=== PATIENT | female | born 1965 | race Two or more races ===

== ENCOUNTER 2025-04-22 16:14 | Emergency (ER) | payer OTHER ==
[~2025-04-22] VITALS: Ht 162.6 cm; Wt 93.3 kg
--- NOTE | 2025-04-22 17:35 | ED.PDOC ---
History of Present Illness HPI Comments 59 y/o obese F presents with c/c of bilateral, mid back pain. Patient reports on pain starting after lifting an "8ft Foreign tree" and hearing a "crack" from her back on 04/13/25. She has been evaluated and seen multiple times for pain at a [facility] compensation clinic and was referred to the ED for CT/MRI after outpatient X-ray showed indeterminate age compression fracture in T11. Patient denies any numbness, tingling, or further acute symptoms. Past medical history: HTN Past surgical history: 3 C-sections NGUYEN: BACKPAIN, WORK INJURY, SEND FOR POSS T11 FRACTURE. WEARING ABD BELT. NO CAUDA EQUINA. HPI: Poor Historian. REVIEW OF SYSTEMS: CONSTITUTIONAL: Denies acute: fever, diaphoresis, chills, generalized weakness. HEAD: Denies acute: headache, photophobia Eyes: Denies acute: Double vision, vision loss, eye pain, eye discharge. EARS: Denies acute: tinnitus, hearing loss, ear discharge, ear pain, THROAT: Denies acute: sore throat, swelling, difficulty swallowing , pain with swallowing, change in voice. NECK: Denies acute: neck pain, neck swelling, stiff neck. HEART: Denies acute : chest pain, palpitations, LUNGS: Denies acute: SOB, wheezing, cough, hemoptysis ABDOMEN: Denies acute: abdominal pain, Nausea, Vomiting, diarrhea, melena , hematemesis, hematochezia SKIN: Denies acute: rash, redness, lesions, itchiness. EXTREMITIES: Denies acute: calf pain, numbness, tingling, weakness, denies pain in extremity. Neuro: Denies acute: focal neurological deficit, motor or sensory focal neurological deficit, tremors, seizure like activity, confusion, dizziness, change in mental status, loss of bowel or bladder function, cauda equina like symptoms. : Denies acute: dysuria, hematuria, flank pain, increase in urinary frequency. PSYCH: Denies acute: hallucination, suicidal ideation, homicidal ideation. FEMALE: Denies acute: abnormal vaginal bleeding, foul odor, unusual discharge. PHYSICAL EXAM: General: ----mild----acute distress, awake and alert. Head: normocephalic, atraumatic. No raccoon's eyes, no wooten sign. Neck: supple, trachea is midline, no swelling. Throat: Normal phonation. Eyes:, no erythema, no purulent discharge, no proptosis, no icterus. Heart: regular rate, regular rhythm, no significant murmur appreciated. Lungs: no apparent respiratory distress, Able to speak in full sentences. No wheezing, no rhonchi, no crackles. No stridors Clear to auscultation bilaterally. Abdomen: non tender to palpation, non distended, soft, no guarding, no rebound, + bowel sounds. obese Neuro: Awake, Alert, oriented to name, self, situation, follows commands GCS=15. Speech is normal. Skin: no petechia, no purpura, no cyanosis, non-pale, not jaundice. Lower extremities: --no - Pitting edema no deformity, no focal swelling, no calf TTP. Makes eye contact. moves all four extremities. Face: no apparent facial droop. Ambulating in the ED independently. ED COURSE: DISCLAIMER: This medical document was created using an electronic medical record system with voice recognition software and computerized dictation system. Although this document has been carefully reviewed, there might still be some phonetic and typographical errors. Occasional wrong-word or "sound-alike" substitutions may have occurred due to the inherent limitations of voice recognition software. These areas are purely typographical due to imperfections of the software programs and do not reflect any compromise in the patient's medical care. Please read the chart carefully and recognize, using context, where these substitutions have occurred. Chief Complaint: Back Pain Time Seen by MD: 17:20 Reviewed Notes: Nurses Notes, Allergies Allergies: Coded Allergies: NO KNOWN ALLERGIES (Unverified , 04/22/25) Information Source: Patient Mode of Arrival: Ambulatory Was a procedure done? Was a procedure done?: No X-Ray, Labs, Meds, VS Vital Signs Date Time Temp Pulse Resp B/P (MAP) Pulse Ox O2 Delivery O2 Flow Rate FiO2 04/22/25 16:25 98.2 83 18 129/98 95 98.2 Time of 1ST Reevaluation: 18:00 Reevaluation 1ST: Unchanged Patient Education/Counseling: Diagnosis, Treatment Family Education/Counseling: No Family Present SEPSIS Sepsis Screen Date sepsis recognized/suspect: Apr 22, 2025 Time Sepsis recognized/suspect: 1631 Recent Procedure: No On Antibiotic Therapy: No Respiratory Rate >20: No Heart Rate >90: No Temp<36 C (96.8 F) or >38.3 C: No SBP <90 or MAP <65 mmHG: No New Acute Mental Status Change: No Is the patient on CPAP, BIPAP,: No Physician Orders Ls Spine Wo Contrast (04/22/25 17:21) Thoracic Spine Wo Contras (04/22/25 17:21) Vital Signs Date Time Temp Pulse Resp B/P (MAP) Pulse Ox O2 Delivery O2 Flow Rate FiO2 04/22/25 16:25 98.2 83 18 129/98 95 98.2 Departure 1 Departure Time of Disposition: 18:09 Impression: Primary Impression: Compression fracture of T11 vertebra Additional Impression: Back injury Disposition: HOME / SELF CARE / HOMELESS Condition: Stable Additional Instructions: Additional instructions: Please read all instructions provided in this packet carefully. You MUST follow-up with your primary care/family doctor in 1 to 2 days. If you are unable to see your primary care/family doctor, please return to our emergency room for re-assessment and re-evaluation in 1 to 2 days. Return to the emergency room here in our facility or to the nearest ER [facility] if your symptoms change or worsen. CONSULTATIONS: you MUST Follow-up for consultation as soon as possible with: -orthopedic spine doctor or neurosurgery spine doctor in 1-2 days. Please call for appointment. You MUST call the consultants office yourself to make an appointment. You may need to arrange that through your insurance and/or your primary/family doctor. If you are unable to see the information services consultant in 1 to 2 days, you must return to our emergency room (or any other ER of your choice) for re-assessment and re- evaluation. Adequate fluid hydration. Although you have been discharged from the Emergency Department, this does not mean that you have a "clean bill of health". No definitive diagnosis for your symptoms has been made today. It is possible that you are in the process of developing a serious illness. This is why you must return to the ED without fail if any new or worsening symptoms develop. No lifting. The fall precautions. Below is a copy of your radiological report for follow up: [facility] [id number] [facility] [address] Ph: [phone] DIAGNOSTIC IMAGING Diagnostic Imaging Report : [id number] Signed PATIENT: DUSTIN NGUYEN ACCT: [id number] UNIT: [id number] : 1965 LOC: ER ROOM / BED: / AGE / SEX: 59 / F ADM STATUS: REG ER SERVICE 1721 ORDERING PHYSICIAN: REZA WATTERS DO PROCEDURE(s): LS2CT - LS SPINE WO CONTRAST REASON: work injury ORDER NUMBER(s): [id number], ACCESSION NUMBER(s): [id number] EXAM: CT LS SPINE WO CONTRAST, CT THORACIC SPINE WO CONTRAS INDICATION: work injury TECHNIQUE: Axial images of the thoracic and lumbar spine have been obtained along with coronal and sagittal reformatted images. CT scans at this facility use dose modulation, iterative reconstruction, and/or weight based dosing when appropriate to reduce radiation dose to as low as reasonably achievable. COMPARISON: XY LUMBAR SPINE 4+ VIEW on DOS: 04/15/25 FINDINGS: ANATOMY: Five lumbar-type vertebral bodies are present. The most inferior well- formed disc space will be referred to as L5-S1 for purposes of numbering in this report. Normal alignment of the thoracic spine. VERTEBRAL BODIES:Acute compression fracture of the superior endplate of T11 with estimated 10-20 percent superior endplate height loss. SPINAL CANAL:No spinal canal narrowing. INTERVERTEBRAL DISCS:Disc bulges with broad-based posterior disc protrusion component measuring 3-4 mm at L3-4, L4-5, L5-S1 with bilateral foraminal extension likely effacing the lateral recesses of the levels. FACETS:Multilevel mild to moderate facet arthropathy. OTHER:Mild degenerative change of bilateral sacroiliac joints. 2-3 mm left renal caliceal stone. Vascular calcifications. LEVEL BY LEVEL DISCUSSION BELOW: T12-L1:Unremarkable. L1-L2:Unremarkable. L2-L3:Unremarkable. L3-L4:At least mild bilateral foraminal narrowing. L4-L5:At least mild bilateral foraminal narrowing. L5-S1:At least mild bilateral foraminal narrowing. IMPRESSION: 1. Acute compression fracture of the superior endplate of T11 with estimated 10- 20 percent superior endplate height loss. 2. Multilevel degenerative changes of the lumbar spine as detailed above. ATED BY: DELANO GU MD DICTATED DATE/TIME: 04/22/251850 SIGNED BY: DELANO GU MD SIGNED DATE/TIME: 04/22/251850 CC: [place] [id number] Ph: [phone] DIAGNOSTIC IMAGING Diagnostic Imaging Report : [id number] Signed PATIENT: DUSTIN NGUYEN ACCT: [id number] UNIT: [id number] : 1965 LOC: ER ROOM / BED: / AGE / SEX: 59 / F ADM STATUS: REG ER SERVICE 20 ORDERING PHYSICIAN: REZA WATTERS DO PROCEDURE(s): LS2CT - LS SPINE WO CONTRAST REASON: work injury ORDER NUMBER(s): [id number], ACCESSION NUMBER(s): [id number] EXAM: CT LS SPINE WO CONTRAST, CT THORACIC SPINE WO CONTRAS INDICATION: work injury TECHNIQUE: Axial images of the thoracic and lumbar spine have been obtained along with coronal and sagittal reformatted images. CT scans at this facility use dose modulation, iterative reconstruction, and/or weight based dosing when appropriate to reduce radiation dose to as low as reasonably achievable. COMPARISON: XY LUMBAR SPINE 4+ VIEW on DOS: 04/15/25 FINDINGS: ANATOMY: Five lumbar-type vertebral bodies are present. The most inferior well- formed disc space will be referred to as L5-S1 for purposes of numbering in this report. Normal alignment of the thoracic spine. VERTEBRAL BODIES:Acute compression fracture of the superior endplate of T11 with estimated 10-20 percent superior endplate height loss. SPINAL CANAL:No spinal canal narrowing. INTERVERTEBRAL DISCS:Disc bulges with broad-based posterior disc protrusion component measuring 3-4 mm at L3-4, L4-5, L5-S1 with bilateral foraminal extension likely effacing the lateral recesses of the levels. FACETS:Multilevel mild to moderate facet arthropathy. OTHER:Mild degenerative change of bilateral sacroiliac joints. 2-3 mm left renal caliceal stone. Vascular calcifications. LEVEL BY LEVEL DISCUSSION BELOW: T12-L1:Unremarkable. L1-L2:Unremarkable. L2-L3:Unremarkable. L3-L4:At least mild bilateral foraminal narrowing. L4-L5:At least mild bilateral foraminal narrowing. L5-S1:At least mild bilateral foraminal narrowing. IMPRESSION: 1. Acute compression fracture of the superior endplate of T11 with estimated 10- 20 percent superior endplate height loss. 2. Multilevel degenerative changes of the lumbar spine as detailed above. ATED BY: DELANO GU MD DICTATED DATE/TIME: 04/22/251850 SIGNED BY: DELANO GU MD SIGNED DATE/TIME: 04/22/251850 CC: Discharged With: Self Critical Care Note Critical Care Time?: No I personally scribed for REZA WATTERS DO ([email or web address]) on 04/22/25 at 17:35. Electronically submitted by Kem Zavala ([email or web address]). REZA WATTERS DO Apr 22, 2025 17:35
--- NOTE | 2025-04-22 18:54 | DVH ---
EXAM: CT LS SPINE WO CONTRAST, CT THORACIC SPINE WO CONTRAS INDICATION: work injury TECHNIQUE: Axial images of the thoracic and lumbar spine have been obtained along with coronal and sagittal reformatted images. CT scans at this facility use dose modulation, iterative reconstruction, and/or weight based dosing when appropriate to reduce radiation dose to as low as reasonably achievable. COMPARISON: XY LUMBAR SPINE 4+ VIEW on DOS: 04/15/25 FINDINGS: ANATOMY: Five lumbar-type vertebral bodies are present. The most inferior well- formed disc space will be referred to as L5-S1 for purposes of numbering in this report. Normal alignment of the thoracic spine. VERTEBRAL BODIES:Acute compression fracture of the superior endplate of T11 with estimated 10-20 percent superior endplate height loss. SPINAL CANAL:No spinal canal narrowing. INTERVERTEBRAL DISCS:Disc bulges with broad-based posterior disc protrusion component measuring 3-4 mm at L3-4, L4-5, L5-S1 with bilateral foraminal extension likely effacing the lateral recesses of the levels. FACETS:Multilevel mild to moderate facet arthropathy. OTHER:Mild degenerative change of bilateral sacroiliac joints. 2-3 mm left renal caliceal stone. Vascular calcifications. LEVEL BY LEVEL DISCUSSION BELOW: T12-L1:Unremarkable. L1-L2:Unremarkable. L2-L3:Unremarkable. L3-L4:At least mild bilateral foraminal narrowing. L4-L5:At least mild bilateral foraminal narrowing. L5-S1:At least mild bilateral foraminal narrowing. IMPRESSION: 1. Acute compression fracture of the superior endplate of T11 with estimated 10- 20 percent superior endplate height loss. 2. Multilevel degenerative changes of the lumbar spine as detailed above.
[2025-04-22 19:42] VITALS: BP 147/82; PULSE 83; RESP 18; TEMP 98.2; O2SAT 98
== END 2025-04-22 19:46 | disposition home or self-care (01) ==
LOC: ER 16:14
DX: S22.080A Wedge compression fracture of T11-T12 vertebra, initial encounter for closed fracture (principal); S39.92XA Unspecified injury of lower back, initial encounter; I10 Essential (primary) hypertension; X58.XXXA Exposure to other specified factors, initial encounter; Y93.89 Activity, other specified; Y92.89 Other specified places as the place of occurrence of the external cause; Y99.8 Other external cause status
CPT/HCPCS: 72128; 72131